=== PATIENT | female | born 1965 | race Caucasian/White ===

== ENCOUNTER → 2023-04-09 18:45 | Outpatient (REF) | payer OTHER, SELFPAY ==
[2023-04-11 13:26] LABS: HDL Cholesterol 114 mg/dl; LDL Cholesterol, Calculated 111 mg/dl; Total Cholesterol 237 mg/dl (50-199); Triglyceride 63 mg/dl (10-149); Very Low Density Lipoprotein 12 mg/dl (0-30)
[2023-04-11 13:32] LABS: Glycohemoglobin (HgbA1c) 5.3 % (4.0-5.6)
== END ==
LOC: CLAB 18:45
PROVIDERS: ATTENDING PHYSICIAN Internal Medicine
DX: E66.9 Obesity, unspecified (principal)
CPT/HCPCS: 36415; 80061; 83036